=== PATIENT | female | born 1995 | race American Indian/Alaskan Native ===

== ENCOUNTER 2016-11-19 18:31 | Emergency (ER) | payer OTHER ==
[2016-11-19 19:30] VITALS: BP 121/77
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
== END 2016-11-19 22:40 | disposition home or self-care (01) ==
LOC: ED 18:31
DX: M54.6 Pain in thoracic spine (principal); M62.838 Other muscle spasm; M54.2 Cervicalgia; V49.49XA Driver injured in collision with other motor vehicles in traffic accident, initial encounter; Y92.488 Other paved roadways as the place of occurrence of the external cause; Y93.89 Activity, other specified; Y99.8 Other external cause status
CPT/HCPCS: 81025; 99283

== ENCOUNTER 2022-03-11 16:16 | Outpatient (CLI) | payer OTHER ==
[2022-03-11 16:54] VITALS: BP 103/61
[2022-03-11] MEDS ORDERED: LACTATED RINGERS 1,000 ML ONE (17:48)
[2022-03-11] MEDS ORDERED: D5W/LACTATED RINGERS 1,000 ML IV SCH (19:00)
--- NOTE | 2022-03-11 20:47 | Ultrasound Report ---
Obstetrical ultrasound limited INDICATION: Pelvic and abdominal pain FINDINGS: Single living intrauterine . The fetus is in the cephalic position. heart ra te is 129 bpm. No obvious abruption is appreciated IMPRESSION: No visualization of placental abruption is identified. Signer Name: Eyal Driscoll MD Signed: 03/11/2022 8:43 PM Workstation Name: [email or web address]
== END 2022-03-11 21:57 | disposition home or self-care (01) ==
LOC: TRG 16:16 → APU 16:19 → TRG 21:57
PROVIDERS: ATTEND Student in an Organized Health Care Education/Training Program
DX: O26.893 Other specified pregnancy related conditions, third trimester (principal); R10.9 Unspecified abdominal pain; R10.2 Pelvic and perineal pain; W19.XXXA Unspecified fall, initial encounter; O99.323 Drug use complicating pregnancy, third trimester; F12.90 Cannabis use, unspecified, uncomplicated; Z3A.35 35 weeks gestation of pregnancy; Y93.89 Activity, other specified; Y92.89 Other specified places as the place of occurrence of the external cause; Y99.8 Other external cause status
CPT/HCPCS: 76815; 85460; J7120; J7121; 96360; 96361; J7060

== ENCOUNTER 2022-04-16 22:07 | Inpatient (IN) | payer OTHER ==
[2022-04-17] MEDS ORDERED: ACETAMINOPHEN 325 MG TAB PO PRN (00:12)
[2022-04-17] MEDS ORDERED: NalbUPHINE 10 MG/1 ML INJ IV PRN (00:12)
[2022-04-17] MEDS ORDERED: miSOPROStol 200 MCG TAB PR PRN (00:12)
[2022-04-17] MEDS ORDERED: ePHEDrine SULFATE 50 MG/1 ML INJ IV PRN ×2 (00:12→04:02)
[2022-04-17] MEDS ORDERED: LIDOCAINE (2%) 20 MG/1 ML VIAL 20 ML MDV INFILTRATI ONE (00:12)
[2022-04-17] MEDS ORDERED: MINERAL OIL 30 ML ORAL LIQD PO PRN (00:12)
[2022-04-17] MEDS ORDERED: LOPERAMIDE 2 MG CAP PO PRN (00:12)
[2022-04-17] MEDS ORDERED: ONDANSETRON 4 MG/2 ML INJ IV PRN ×2 (00:12→10:00)
[2022-04-17] MEDS ORDERED: OXYTOCIN 10 UNIT/1 ML INJ IM PRN (00:12)
[2022-04-17] MEDS ORDERED: METHYLERGONOVINE MALEATE 0.2 MG/ML VIAL IM PRN (00:12)
[2022-04-17] MEDS ORDERED: TERBUTALINE 1 MG/1 ML INJ SUB-Q PRN (00:12)
[2022-04-17] MEDS ORDERED: CARBOPROST TROMETHAMINE 250 MCG/1 ML INJ IM PRN (00:12)
[2022-04-17] MEDS ORDERED: LACTATED RINGERS 1,000 ML IV SCH (00:15)
--- NOTE | 2022-04-17 00:19 | History and Physical Report ---
History of Present Illness Date of examination: 04/17/22 Chief complaint: SROM @ 0730 this morning History of present illness: EDC Confirmation: 04/14/2022 Gestational Age: 20 2/7 weeks Past History : 3 Term Births: 2 Premature Births: 0 Living Children: 2 Para: 2 Mult. Births: 0 Prev : 0 Aborta: 0 Elect. Ab: 0 Spont. Ab: 0 Ectopics: 0 # 1 Delivery date: 2014 Weeks Gestation: 39 labor: no Delivery type: Anesthesia type: none Delivery location: [facility] Sex: Female weight: 6#12 Comments: elective IOL @ 39wks # 2 Delivery date: 2015 Weeks Gestation: 39 labor: no Delivery type: Anesthesia type: epidural Delivery location: [facility] Sex: Male weight: 8#11oz Comments: no shoulder dystocia, baby had fractured clavical Past Medical History: Reviewed and updated today: Negative Past Medical History Past Surgical History: Reviewed and updated today: Negative Past Surgical History Family History Summary: First Degree Blood Relative - Has No Known Family History - Entered On: 11/27/2021 Social History: Patient 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 Risk Factors: Smoked Tobacco Use: Never smoker Smokeless Tobacco Use: Never Passive Smoke Exposure: no HIV High Risk Behavior: no Exercise: yes Times/wk: 7 Type of Exercise: yoga Seatbelt Use: 75 % No Dietary Counseling Reason: pn yes Alcohol Use: no Drug Use: yes Drug of Choice: marijuana Comments/Other Substances: current everyday smoker DAST10 Have you used drugs other than those required for medical reasons? No Do you abuse more than one drug at a time? No Are you always able to stop using drugs when you want to? If never use drugs, answer 'Yes'. Yes Have you had 'blackouts' or 'flashbacks' as a result of drug use? No Do you ever feel bad or guilty about your drug use? If never use drugs, answer 'No'. Yes Does your spouse (or parents) ever complain about your involvement with drugs? No Have you neglected your family because of your use of drugs? No Have you engaged in illegal activities in order to obtain drugs? Yes Have you ever experienced withdrawal symptoms (felt sick) when you stopped taking drugs? No Have you had medical problems as a result of your drug use (e.g., memory loss, hepatitis, convulsions, bleeding, etc.)? 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 Infection History Hx of STD: none HIV Risk Eval: no Hepatitis B Risk Eval: low risk Personal hx. of genital herpes: no Partner hx. of genital herpes: no Rash, Viral, or Febrile illness since last LMP? no Varicella/Chicken Pox Status: Immunized Genetic History Congenital Heart Defect: Mom: no Dad: no Lynda Disease: Mom: no Dad: no Thalassemia Mom: no Dad: no Neural Tube Defect Mom: no Dad: no Down's Syndrome Mom: no Dad: no Mark-Sachs Mom: no Dad: no Sickle Cell Disease/Trait Mom: no Dad: no Hemophilia Mom: no Dad: no Muscular Dystrophy Mom: no Dad: no Cystic Fibrosis Mom: no Dad: no Deysi Chorea Mom: no Dad: no Mental Retardation Mom: no Dad: no Fragile X Mom: no Dad: no Other Genetic/Chromosomal Disorder Mom: no Dad: no Child w/other defect Mom: no Dad: no Enviromental Exposures Xray Exposure: no Medication, drug, or alcohol use since LMP: yes Chemical/Other Exposure: no Exposure to Cat Liter: yes Hx of Parvovirus (Fifth Disease): no Occupational Exposure to Children: none 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 Active Medications: None Current Allergies (reviewed today): No known allergies Past History Past Medical History: other (see HPI) Past Surgical History: other (see HPI) 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) Family/Genetic History: other (see HPI) - Obstetrical History : 3 Para: 2 Hx # Term Pregnancies: 2 Number of Pregnancies: 0 Spontaneous Abortions: 0 Induced : 0 Number of Living Children: 2 Medications and Allergies Allergies Allergy/AdvReac Type Severity Reaction Status Date / Time No Known Allergies Allergy Verified 04/16/22 23:31 Active Meds: Active Medications Acetaminophen (Acetaminophen 325 Mg Tab) 650 mg PO Q4H PRN PRN Reason: Pain, Mild (1-3) Carboprost Tromethamine (Carboprost Tromethamine 250 Mcg/1 Ml Inj) 250 mcg IM ONCE PRN PRN Reason: Uterine Bleeding Ephedrine Sulfate (Ephedrine Sulfate 50 Mg/1 Ml Inj) 10 mg IV Q2M PRN PRN Reason: Hypotension Fentanyl (Fentanyl 100 Mcg/2 Ml Inj) 100 mcg IV Q2H PRN PRN Reason: Pain,Severe (7-10) LABOR PAIN Oxytocin/Sodium Chloride (Pitocin/Ns 30 Unit/500ml) 30 units in 500 mls @ 2 mls/hr IV TITR PEYMAN; Protocol Lactated Ringer's (Lactated Ringers) 1,000 mls @ 125 mls/hr IV DIRECT PEYMAN Oxytocin/Sodium Chloride (Pitocin/Ns 30 Unit/500ml) 30 units in 500 mls @ 40 mls/hr IV TITR PEYMAN; Protocol Lidocaine (Lidocaine (2%) 20 Mg/1 Ml Vial 20 Ml Mdv) 20 ml INFILTRATI ONCE ONE Stop: 04/17/22 00:13 Loperamide HCl (Loperamide 2 Mg Cap) 2 mg PO ONCE PRN PRN Reason: give with Hemabate Methylergonovine Maleate (Methylergonovine Maleate 0.2 Mg/Ml Vial) 0.2 mg IM ONCE PRN PRN Reason: Uterine Bleeding Mineral Oil (Mineral Oil 30 Ml Oral Liqd) 30 ml PO QHS PRN PRN Reason: Constipation Misoprostol (Misoprostol 200 Mcg Tab) 800 mcg WV ONCE PRN PRN Reason: Uterine Bleeding Nalbuphine HCl (Nalbuphine 10 Mg/1 Ml Inj) 10 mg IV Q2H PRN PRN Reason: Pain, Moderate (4-6) Ondansetron HCl (Ondansetron 4 Mg/2 Ml Inj) 4 mg IV Q8H PRN PRN Reason: Nausea And Vomiting Oxytocin (Oxytocin 10 Unit/1 Ml Inj) 10 unit IM ONCE PRN PRN Reason: Uterine Bleeding Terbutaline Sulfate (Terbutaline 1 Mg/1 Ml Inj) 0.25 mg SUB-Q ONCE PRN PRN Reason: Hyperstimulation/Hypertonicity Review of Systems All systems: negative - Vital Signs Vital signs: Vital Signs Pulse BP Pulse Ox 75 127/86 100 04/16/22 22:32 04/16/22 22:32 04/16/22 22:32 Temp Pulse Resp BP Pulse Ox 73 127/86 99 04/17/22 00:12 04/16/22 22:32 04/17/22 00:12 - Physical Exam Cardiovascular: Regular rate Lungs: Positive: Normal air movement Abdomen: Positive: normal appearance, soft Genitourinary (Female): Positive: normal external genitalia, normal perenium Vulva: both: normal Vagina: Positive: normal moisture (+ clear amniotic fluid) Uterus: Positive: normal size Extremities: Positive: normal - Obstetrical FHR: category 1 Uterine Contraction Monitor Mode: External Cervical Dilatation: 5.5 Cervical Effacement Percentage: 80 station: -2 Uterine Contraction Frequency (min): 2-4 Uterine Contraction Pattern: Regular Uterine Tone Measurement Phase: Contraction Uterine Contraction Intensity: Moderate Results All other labs normal. Assessment and Plan 26y/o @ 40+3 presented with SROM @ 0730 this morning. dated by 20wk u/s. GBS NEG. Pt reports having sex today after SROM. Admission orders in EMR. Pt has not been seen in the office since 03/18/2022 and has missed several visits during the . UDS ordered d/t insufficient care. - Patient Problems (1) 40 weeks gestation of Current Visit: Yes Status: Acute (2) SROM (spontaneous rupture of membranes) Current Visit: Yes Status: Acute (3) Insufficient care in third trimester Current Visit: Yes Status: Acute
--- NOTE | 2022-04-17 00:41 | Ultrasound Report ---
US OB limited INDICATION / CLINICAL INFORMATION: Position MICHAEL COMPARISON: Limited OB ultrasound 03/11/2022 TECHNIQUE: Using a transcutaneous probe, multiple grayscale, color Doppler, and spectral Doppler imag es of the uterus and fetus were captured and stored. FINDINGS: Single cephalic fetus with heart rate 129 bpm. Amniotic fluid index is low measuring 4.2 cm. Clinical estimate of gestational age based on LMP of 07/08/2021 is 40 weeks 2 days. IMPRESSION: 1. Single living fetus with heart rate as detailed. 2. Oligohydramnios may reflect sequelae of rupture of membranes. Clinical correlation recommended. Signer Name: Basil Espinoza II, MD Signed: 04/17/2022 12:36 AM Workstation Name: [id number]
[2022-04-17] MEDS: fentaNYL 100 MCG/2 ML INJ IV PRN ×2 (00:59→03:01)
[2022-04-17] MEDS ORDERED: OXYTOCIN DRIP 30 UNITS/500 ML BAG IV SCH ×2 (01:00)
[2022-04-17 01:51] LABS: Hemoglobin 9.9 gm/dl (10.1-14.3); Mean Corpuscular HGB Conc 32 % (30-34); Mean Corpuscular Volume 86 fl (79-97); Platelet Count 155 K/mm3 (140-440); Red Blood Count 3.62 M/mm3 (3.65-5.03); Red Cell Distribution Width 14.9 % (13.2-15.2)
[2022-04-17] MEDS ORDERED: fentaNYL-BUPIV 2 MCG/ML-0.125% 200 MCG/100 ML BAG EPIDURAL SCH (04:02)
[2022-04-17] MEDS ORDERED: NALOXONE 0.4 MG/1 ML INJ IV PRN (04:02)
--- NOTE | 2022-04-17 04:04 | Anesthesia Consultation ---
Anesthesia Consult and Med Hx Date of service: 04/17/22 - Airway Anesthetic Teeth Evaluation: Good ROM Head & Neck: Adequate Mental/Hyoid Distance: Adequate Mallampati Class: Class II Intubation Access Assessment: Probably Good - Pulmonary Exam CTA: Yes - Cardiac Exam Cardiac Exam: RRR - Pre-Operative Health Status ASA Pre-Surgery Classification: ASA2 Proposed Anesthetic Plan: Epidural - Pulmonary Hx Smoking: No Hx Asthma: No Hx Respiratory Symptoms: No SOB: No COPD: No Home Oxygen Therapy: No Hx Pneumonia: No Hx Sleep Apnea: No - Cardiovascular System Hx Hypertension: No Hx Coronary Artery Disease: No Hx Heart Attack/AMI: No Hx Angina: No Hx Percutaneous Transluminal Coronary Angioplasty (PTCA): No Hx Cardia Arrhythmia: No Hx Pacemaker: No Hx Internal Defibrillator: No Hx Valvular Heart Disease: No Hx Heart Murmur: No Hx Peripheral Vascular Disease: No - Central Nervous System Hx Neuromuscular Disorder: No Hx Seizures: No CVA: No Hx Back Pain: No Hx Psychiatric Problems: No - Gastrointestinal Hx Ulcer: No Hx Gastroesophageal Reflux Disease: No - Endocrine Hx Renal Disease: No Hx End Stage Renal Disease: No Hx Cirrhosis: No Hx Liver Disease: No Hx Insulin Dependent Diabetes: No Hx Non-Insulin Dependent Diabetes: No Hx Thyroid Disease: No Hx Hypothyroidism: No Hx Hyperthyroidism: No - Hematic Hx Anemia: Yes (takes Iron vitamins) Hx Sickle Cell Disease: No - Other Systems Hx Alcohol Use: No Hx Substance Use: No Hx Cancer: No Hx Obesity: No
--- NOTE | 2022-04-17 04:04 | Anesthesia Day of Surgery ---
Anesthesia Day of Surgery - Day of Surgery Patient Examined: Yes Patient H&P Reviewed: Yes Patient is NPO: Yes Beta Blockers: No Cardiac Clearance: No Pulmonary Clearance: No Alireza's Test: N/A
--- NOTE | 2022-04-17 04:05 | Progress Note ---
Labor Epidural - Labor Epidural Start Time: 03:46 Stop Time: 03:51 Performed by:: SHARDA CORDOVA Procedure: Epidural Requested for Labor Pain. H&P and PT Chart reviewed and consent obtained. Time out performed and the procedure was explained, all questions answered. Patient was placed in a sitting position with monitors applied. The PTs back was prepped and draped in usual sterile fashion. The Skin was localized with 3 mL of 1% lidocaine at L3-L4. A 17-gauge Touhy epidural needle was advanced to RUTH with saline at 7 cm and no blood/CSF was noted via epidural needle. Epidural catheter was advanced to 12 cm. There was negative aspiration for blood and CSF in the catheter and negative response to a test dose of 3 ml 1.5% lidocaine w/ Epi and a sterile dressing was applied Patient tolerated the procedure well and there were no immediate complications noted.
--- NOTE | 2022-04-17 04:57 | Procedure Note ---
OB Delivery Note - Delivery Date of Delivery: 04/17/22 Surgical Dressing Maker: KENNA WHITTAKER Estimated blood loss: 100cc - Vaginal Delivery presentation: vertex Delivery position: OA (AUDREY - Left shoulder anterior) Intrapartum events: other(please specify) Delivery induction: none Delivery monitor: external FHT, external uterine Route of delivery: Delivery placenta: spontaneous Delivery cord: 3 umbilical vessels Episiotomy: none Delivery laceration: none Anesthesia: epidural Delivery comments: baby girl born over intact perineum, tight left anterior shoulder but no shoulder dystocia. Infant dried and stimulated, 3 vessel cord and clamped, cord blood collected. placenta del over intact and complete. no lacerations to repair. EBL 100. apgars 8/9. all counts correct. red rubber cath used to empty bladder post delivery. Mother and infant remain LDR stable. - Infant A at 1 minute: 8 at 5 minutes: 9 Gender: Female
[2022-04-17 06:31] LABS: Amphetamine Screen,Urine Negative; Benzodiazepines Screen,Urine Negative; Cocaine Screen,Urine Negative; Methadone Screen,Urine Negative; Opiate Screen,Urine Negative
[2022-04-17 07:21] LABS: Cannabinoid Screen,Urine Positive
--- NOTE | 2022-04-17 08:19 | Progress Note ---
Assessment and Plan A: 26 y.o. s/p ~ 4 hours. - Patient Problems (1) (normal spontaneous vaginal delivery) Current Visit: Yes Status: Acute Plan to address problem: Continue with care. Anticipate discharge home on 04/18/2022. (2) Insufficient care in third trimester Current Visit: Yes Status: Acute Plan to address problem: Will need case management consult before discharge home. Subjective - Subjective Date of service: 04/17/22 Principal diagnosis: s/p ~ 4 hours Patient reports: appetite normal, voiding normally, pain well controlled, ambulating normally : doing well Objective - Vital Signs Latest vital signs: Vital Signs Temp Pulse Resp BP BP Pulse Ox Pulse Ox 04/17/22 07:05 68 74 L 04/17/22 06:51 68 L 04/17/22 06:50 74 137/72 04/17/22 06:45 152 H 69 L 04/17/22 06:36 72 135/81 04/17/22 06:35 200 H 76 L 04/17/22 06:29 127 H 72 L 04/17/22 06:20 73 128/67 04/17/22 06:19 60 71 L 04/17/22 06:18 70 L 04/17/22 06:13 65 L 04/17/22 06:09 121 H 67 L 04/17/22 06:07 63 L 04/17/22 06:05 71 131/74 04/17/22 06:02 74 90 04/17/22 05:57 91 H 87 04/17/22 05:54 80 L 04/17/22 05:52 61 84 04/17/22 05:50 72 128/68 04/17/22 05:47 81 L 04/17/22 05:42 73 89 04/17/22 05:37 66 57 L 04/17/22 05:36 73 135/62 04/17/22 05:32 53 L 88 04/17/22 05:31 88 90 04/17/22 05:27 80 100 04/17/22 05:22 74 100 04/17/22 05:21 79 175/72 04/17/22 05:17 81 100 04/17/22 05:12 78 100 04/17/22 05:07 79 100 04/17/22 05:06 82 138/74 04/17/22 05:02 79 100 04/17/22 04:57 90 100 04/17/22 04:54 98.0 F 91 H 18 133/74 100 04/17/22 04:52 80 100 04/17/22 04:50 83 133/74 04/17/22 04:47 81 99 04/17/22 04:42 94 H 84 04/17/22 04:36 80 132/71 04/17/22 04:22 97 H 100 04/17/22 04:20 106 H 153/124 04/17/22 04:19 87 04/17/22 04:17 100 H 100 04/17/22 04:14 96 H 133/71 76 L 04/17/22 04:12 79 136/70 100 04/17/22 04:10 100 H 133/75 04/17/22 04:08 78 133/72 04/17/22 04:07 91 H 99 04/17/22 04:06 78 133/72 04/17/22 04:04 71 127/67 04/17/22 04:02 91 H 140/81 100 04/17/22 04:00 95 H 127/67 04/17/22 03:58 75 136/71 04/17/22 03:57 85 100 04/17/22 03:56 71 136/70 04/17/22 03:54 95 H 158/90 93 04/17/22 03:52 101 H 143/90 100 04/17/22 03:49 96 H 94 04/17/22 03:47 105 H 100 04/17/22 03:42 96 H 99 04/17/22 03:38 64 87 04/17/22 03:37 70 91 04/17/22 03:32 69 100 04/17/22 03:27 90 100 04/17/22 03:22 100 H 98 04/17/22 03:20 92 H 135/85 04/17/22 03:17 77 99 04/17/22 03:12 68 98 04/17/22 03:07 94 H 97 04/17/22 03:02 103 H 100 04/17/22 03:01 18 04/17/22 02:57 90 98 04/17/22 02:52 69 98 04/17/22 02:51 90 148/92 04/17/22 02:47 75 99 04/17/22 02:42 80 97 04/17/22 02:37 69 98 04/17/22 02:32 76 99 04/17/22 02:27 95 H 100 04/17/22 02:22 71 99 04/17/22 02:20 83 147/97 04/17/22 02:17 71 98 04/17/22 02:12 83 100 04/17/22 02:07 71 98 04/17/22 02:02 95 H 99 04/17/22 01:59 18 04/17/22 01:57 71 99 04/17/22 01:52 96 H 100 04/17/22 01:50 68 149/80 04/17/22 01:47 68 98 04/17/22 01:42 66 99 04/17/22 01:37 73 98 04/17/22 01:32 63 97 04/17/22 01:27 100 H 98 04/17/22 01:22 74 99 04/17/22 01:17 90 100 04/17/22 01:13 98.9 F 72 18 154/94 99 04/17/22 01:12 69 99 04/17/22 01:09 88 154/93 04/17/22 01:07 75 98 04/17/22 01:05 96 04/17/22 01:02 75 98 04/17/22 00:59 18 04/17/22 00:57 91 H 100 04/17/22 00:52 81 98 04/17/22 00:47 78 96 04/17/22 00:37 75 98 04/17/22 00:32 95 H 98 04/17/22 00:27 77 100 04/17/22 00:22 85 98 04/17/22 00:17 78 97 04/17/22 00:12 73 99 04/17/22 00:07 83 100 04/17/22 00:02 73 99 04/16/22 23:57 65 99 04/16/22 23:52 74 100 04/16/22 23:47 71 99 04/16/22 23:42 78 100 04/16/22 23:37 96 H 100 04/16/22 23:33 88 81 L 04/16/22 23:32 78 98 04/16/22 23:27 74 99 04/16/22 23:22 72 98 04/16/22 23:17 72 99 04/16/22 23:12 70 99 04/16/22 23:07 77 100 04/16/22 23:02 75 99 04/16/22 22:57 75 100 04/16/22 22:52 83 100 04/16/22 22:47 75 98 04/16/22 22:42 74 99 04/16/22 22:37 73 99 04/16/22 22:32 70 127/86 100 Intake and Output 04/16/22 04/17/22 04/17/22 22:59 06:59 14:59 Other: Weight 140 lb Estimated Blood Loss 100 - Exam Cardiovascular: Present: Regular rate Lungs: Present: Normal air movement Abdomen: Present: normal appearance, soft Uterus: Present: normal Extremities: Present: normal - Labs Labs: Abnormal lab results 04/17/22 Range/Units 00:20 WBC 12.6 H (4.5-11.0) K/mm3 RBC 3.62 L (3.65-5.03) M/mm3 Hgb 9.9 L (10.1-14.3) gm/dl MCH 27 L (28-32) pg
[2022-04-17] MEDS ORDERED: IBUPROFEN 800 MG TAB PO SCH ×2 (08:30→10:00)
[2022-04-17] MEDS ORDERED: BENZOCAINE/MENTHOL 20/0.5% TOP SPRAY 56 GM TP PRN (10:00)
[2022-04-17] MEDS ORDERED: PROMETHAZINE 25 MG TAB PO PRN (10:00)
[2022-04-17] MEDS ORDERED: diphenhydrAMINE 25 MG CAP PO PRN (10:00)
[2022-04-17] MEDS ORDERED: WITCH HAZEL/ GLYCERIN PAD TP PRN (10:00)
[2022-04-17] MEDS ORDERED: LANOLIN/ZINC/DIMETHICONE (LANSINOH) 7 GM TP PRN (10:00)
[2022-04-17] MEDS: PRENATAL VIT27-FE FUMARATE-FOLIC ACID VIT TAB PO SCH (10:25)
[2022-04-17] MEDS: DOCUSATE SODIUM 100 MG CAP PO SCH ×2 (10:25→21:48)
[2022-04-17] MEDS: IBUPROFEN 800 MG TAB PO SCH ×2 (15:21→21:48)
--- NOTE | 2022-04-17 16:04 | Post Anesthesia Evaluation ---
- Post Anesthesia Evaluation Patient Participated: Yes Airway Patent: Yes Stable Respiratory Function: Yes Nausea/Vomiting: No Temp > 96.8F: Yes Pain Manageable: Yes Adequeate Hydration: Yes Anesthesia Complications: No Block Receding Appropriately: Yes Patient on Ventilator: No
[2022-04-17 19:14] LABS: Hematocrit 26.8 % (30.3-42.9); Hemoglobin 8.9 gm/dl (10.1-14.3)
[2022-04-17] MEDS ORDERED: MAGNESIUM HYDROXIDE (MOM) ORAL LIQD UDC PO PRN (22:00)
[2022-04-18] MEDS: IBUPROFEN 800 MG TAB PO SCH ×3 (04:23→17:13)
[2022-04-18] MEDS ORDERED: TETANUS,DIPH,PERTUSS(ACELL) VACCINE 0.5 ML SYRINGE IM ONE (04:46)
--- NOTE | 2022-04-18 08:38 | Discharge Summary ---
Providers - Providers Date of Admission: 04/17/22 00:12 Date of discharge: 04/18/22 Attending physician: ROSENDA FERNANDES 04/17/22 08:20 Consult to Case Management [CONS] Routine Services Needed at Discharge: Cutter Head Sharpener Notified:: no Additional Physician Instructions: Limited care. + Marijuana on UDS. 04/17/22 09:40 Consult to Ex Chef [CONS] Routine Reason For Exam: assistance with , SNS Primary care physician: ROSENDA FERNANDES Hospitalization Reason for admission: active labor Delivery: Episiotomy: none Other procedures: none complications: none Discharge diagnosis: IUP at term delivered [place] baby: female Hospital course: S: Pt doing well. Ambulating, voiding, and passing flatus okay. O: VSS. H/H 8.9/26.9 (asymptomatic of anemia.) Minimal bleeding noted. A: 26 y.o. s/p . In good condition . Limited care. P: Discharge home with instructions. Case management before discharge d/t limited care. Condition at discharge: Good Disposition: 01 HOME / SELF CARE / HOMELESS - Discharge Diagnoses (1) (normal spontaneous vaginal delivery) Status: Acute (2) Insufficient care in third trimester Status: Acute Plan - Discharge Medications Prescriptions: Docusate Sodium [Colace] 100 mg PO BID PRN #60 capsule PRN Reason: Constipation Ferrous Sulfate [Feosol 325 MG tab] 325 mg PO QDAY #30 tablet Ibuprofen [Motrin] 800 mg PO Q8HR PRN #20 tablet PRN Reason: Pain, Moderate (4-6) - Provider Discharge Summary Activity: routine, no sex for 6 weeks, no heavy lifting 4 weeks, no strenuous exercise Diet: routine Instructions: routine Additional instructions: [] Smoking cessation referral if applicable(refer to patient education folder for contact #) [] Refer to [employer] [facility] Booklet Call your doctor immediately for: * Fever > 100.5 * Heavy vaginal bleeding ( >1 pad per hour) * Severe persistent headache * Shortness of breath * Reddened, hot, painful area to leg or breast * Drainage or odor from incision. * Keep incision clean and dry at all times and follow doctor's instructions regarding bathing/showering - Follow up plan Follow up: ROSENDA FERNANDES MD [Primary Care Provider] - 05/17/22 (- Congratulations on the of your baby! - Thank you for allowing us to take care of you! - Please schedule your visit in the office in 4 weeks. - If you have any questions or concerns, please do not hesitate to call the office at .)
[2022-04-18] MEDS: PRENATAL VIT27-FE FUMARATE-FOLIC ACID VIT TAB PO SCH (10:17)
[2022-04-18] MEDS: DOCUSATE SODIUM 100 MG CAP PO SCH (10:17)
[2022-04-18 16:19] VITALS: BP 128/73
== END 2022-04-18 18:30 | disposition home or self-care (01) | DRG 775 ==
LOC: TRG 22:07 → APU 22:09 → TRG 04-17 00:12 → LD 04-17 00:12 → OB 04-17 08:46
PROVIDERS: ADMIT Obstetrics & Gynecology; ATTEND Obstetrics & Gynecology
PROC: 10E0XZZ Delivery of Products of Conception, External Approach (ICD-10-PCS; principal; 2022-04-17)
PROC: 3E0S3BZ Introduction of Anesthetic Agent into Epidural Space, Percutaneous Approach (ICD-10-PCS; 2022-04-17)
PROC: 00HU33Z Insertion of Infusion Device into Spinal Canal, Percutaneous Approach (ICD-10-PCS; 2022-04-17)
PROC: 3E0234Z Introduction of Serum, Toxoid and Vaccine into Muscle, Percutaneous Approach (ICD-10-PCS; 2022-04-18)
DX: O99.324 Drug use complicating childbirth (principal); Z3A.40 40 weeks gestation of pregnancy; Z37.0 Single live birth; Z20.822 Contact with and (suspected) exposure to COVID-19; Z23 Encounter for immunization; O42.92 Full-term premature rupture of membranes, unspecified as to length of time between rupture and onset of labor; F12.929 Cannabis use, unspecified with intoxication, unspecified
CPT/HCPCS: 36415; 76815; 80307; 85014; 85018; 85027; 86592; 86850; 86900; 86901; G0378; J2590; J3010; J7120; U0003